=== PATIENT | female | born 1980 | race Caucasian/White ===

== ENCOUNTER 2018-02-07 08:18 | Inpatient (IN) | payer BC ==
--- NOTE | 2018-02-07 10:20 | HP ---
General Information - General Information Maternal Age: 37 Grav: 4 Para: 2 SAB: 1 IEA: 0 Estimated Due Date: 01/30/18 Determined By: LMP Gestational Age in Weeks and Days: 41 Weeks and 1 Days Maternal Blood Type and Rh: A Positive - Results this Serology/RPR Result: Non-Reactive Rubella Result: Immune HBsAg Result: Negative HIV Result: Negative GBS Culture Result: Negative Past Medical History Delivery History: Hx Uncomplicated Vaginal Delivery - X2 2004, 2008 Pertinent Past Medical History: Non-Contributory Pertinent Past Surgical History: See Records Past Surgical History Comment: Oral surgery 1989 D&C 2006 Breast augmentation 2012 Abdominoplasty 2012 Essure 2013 Pertinent Family History: Non-Contributory - Antepartal Records Antepartal Records: Reviewed, Uncomplicated Review of Systems Constitutional: Comfortable CV Complaint: No Respiratory: Shortness of Breath: No Gastrointestinal: No Nausea/Vomiting, Normal Bowel Movement Genitourinary: No Dysuria, No Bleeding, No Leaking Fluid - Questionable? Thought she had some leaking in past few days Musculoskeletal: No Complaint Neurological: No Headache, No Visual Changes Movement: Normal Exam Allergies/Adverse Reactions: Allergies No Known Allergies Allergy (Verified 02/07/18 10:00) BP 122/79 T 98.3 HR 71 RR 16 O2 100 - Measurements Height: 5 ft 5 in Weight: 151 lb Weight in lbs: 151 Body Mass Index (BMI): 25.1 Pre- Weight: 138 lb Weight Gained This : 13 lbs and 0 ozs - Exam Abdomen: No Upper Quadrant Pain Breast: Breast Exam Deferred CVA: No CVA Tenderness Extremities: No Edema Heart: Normal Rhythm/Heart Sounds HEENT: No Significant Findings Lungs: Clear Bilaterally Rectal: Rectal Exam Deferred Reflexes: DTR 2+, - - no clonus Thyroid: - - WNL on entry to care - Abdominal Exam Abdomen Exam: Non-Tender, Fundal Height Consistent with Dates Abdomen Exam Comment: EFW 7.5-8lb - Membranes Membrane Status: Possible SROM/Pending - Pt had some fluid leaking in past few days, on exam in office was thought to be only vaginal discharge - Ultrasound/Biophysical Profile Ultrasound Status: Not Done - SUSAN done bedside in office on 02/04/18 9cm EFM Findings - External Monitor Findings Baseline Heart Rate: 140 External Monitor Findings: Accelerations Present, No Pattern of Variable or Late Decelerations, Variability Moderate Contractions: Irregular - Occ cramping, Mild Assessment/Plan - Reason for Visit Reason for Visit: IUP @ 41+1 weeks gestation here for induction of labor for postdates and slightly low SUSAN of 9cm. IBOW. No evidence metabolic acidemia - Obstetrical Risk Factors Obstetrical Risk Factors: Assisted Reproduction - Plan Plan: Induction Plan Comment: Admit to L&D. Discussed induction with pitocin vs AROM; pt prefers AROM at this time. Prefers unmedicated but open to epidural if needed. Anticipate SVB. - Date/Time of Admission Date of Admission: 02/07/18 Time of Admission: 09:35
[2018-02-07] MEDS ORDERED: Oxytocin in LR* 20 UNITS/1,000 ML BAG IVPB ONE (11:44)
[2018-02-07] MEDS ORDERED: Oxytocin in LR* 20 UNITS/1,000 ML BAG IVPB SCH (12:00)
[2018-02-07 12:08] LABS: ABS Basophils 0 10^3/ul (0-0.2); ABS Eosinophils 0 10^3/ul (0-0.6); ABS Lymphocytes 1.6 10^3/ul (1.0-4.8); ABS Monocytes 0.6 10^3/ul (0-0.8); ABS Neutrophils 4.5 10^3/ul (1.5-7.7); ABS Nucleated RBC 0 10^3/ul; Eosinophil % 0.3 % (0-6); Hematocrit 39 % (35-47); Hemoglobin 13.4 g/dl (12.0-16.0); Lymphocyte % 23.6 % (25-47); Mean Corpuscular HGB Conc 34 g/dl (31-36); Mean Corpuscular Hemoglobin 34 pg (27-31); Mean Corpuscular Volume 98 fL (80-97); Mean Platelet Volume 9.2 um3 (7.4-10.4); Nucleated Red Blood Cells % 0.1; Platelet Count 205 10^3/ul (150-450); Red Blood Count 3.99 10^6/ul (4.0-5.4); Red Cell Distribution Width 13 % (10.5-15); White Blood Count 6.8 10^3/ul (3.5-10.8)
[2018-02-07] MEDS ORDERED: Ibuprofen TAB* 600 MG ONE (18:26)
[2018-02-07] MEDS ORDERED: Acetaminophen TAB* 325 MG PO PRN (18:53)
[2018-02-07] MEDS ORDERED: Glycerin ADULT SUPP PR PRN (18:53)
[2018-02-07] MEDS ORDERED: Dibucaine 1% 28.35 GM TUBE PR PRN (18:53)
[2018-02-07] MEDS ORDERED: Witch Hazel PAD* JAR TOPICAL PRN (18:53)
[2018-02-07] MEDS ORDERED: Ibuprofen TAB* 600 MG PO PRN (18:53)
[2018-02-07] MEDS ORDERED: Simethicone TAB* 80 MG TAB.CHEW PO SCH (21:00)
[2018-02-07] MEDS: Docusate CAP* 100 MG PO SCH (21:52)
[2018-02-08 06:48] LABS: ABS Basophils 0 10^3/ul (0-0.2); ABS Eosinophils 0 10^3/ul (0-0.6); ABS Monocytes 0.7 10^3/ul (0-0.8); ABS Neutrophils 6.7 10^3/ul (1.5-7.7); ABS Nucleated RBC 0 10^3/ul; Eosinophil % 0.4 % (0-6); Hematocrit 36 % (35-47); Hemoglobin 12.6 g/dl (12.0-16.0); Lymphocyte % 20.9 % (25-47); Mean Corpuscular HGB Conc 35 g/dl (31-36); Mean Corpuscular Hemoglobin 34 pg (27-31); Mean Corpuscular Volume 97 fL (80-97); Mean Platelet Volume 9.1 um3 (7.4-10.4); Nucleated Red Blood Cells % 0.1; Platelet Count 202 10^3/ul (150-450); Red Blood Count 3.72 10^6/ul (4.0-5.4); Red Cell Distribution Width 14 % (10.5-15); White Blood Count 9.5 10^3/ul (3.5-10.8)
[2018-02-08] MEDS: Docusate CAP* 100 MG PO SCH ×2 (08:50→14:04)
[2018-02-08] MEDS ORDERED: Ferrous Gluconate TAB* 324 MG TAB PO SCH (09:00)
[2018-02-08 15:50] VITALS: BP 125/78
== END 2018-02-08 19:30 | disposition home or self-care (01) | DRG 560 ==
LOC: MCHOBOUT 08:18 → MCHOB 09:35
PROVIDERS: ADMIT Midwife; ATTEND Midwife
PROC: 10E0XZZ Delivery of Products of Conception, External Approach (ICD-10-PCS; principal; 2018-02-07)
PROC: 10907ZC Drainage of Amniotic Fluid, Therapeutic from Products of Conception, Via Natural or Artificial Opening (ICD-10-PCS; 2018-02-07)
PROC: 3E033VJ Introduction of Other Hormone into Peripheral Vein, Percutaneous Approach (ICD-10-PCS; 2018-02-07)
PROC: 0HQ9XZZ Repair Perineum Skin, External Approach (ICD-10-PCS; 2018-02-07)
DX: O48.0 Post-term pregnancy (principal); O70.0 First degree perineal laceration during delivery; Z3A.41 41 weeks gestation of pregnancy; Z37.0 Single live birth
CPT/HCPCS: 36415; 85025; 86850; 86900; 86901; A9270-GY